=== PATIENT | male | born 1995 | race Two or more races ===

== ENCOUNTER 2017-04-10 17:43 | Emergency (ER) | payer BC, OTHER ==
[~2017-04-10] VITALS: Ht 185.4 cm; Wt 99.8 kg
[2017-04-10] MEDS ORDERED: AZIT500T4 PO (18:07)
--- NOTE | 2017-04-10 18:31 | NUR ---
Pt c/o flu like s/s, dizziness, DAILEY, dry cough, body aches, and fever (101-103) for over 1 week. Pt states he was put on "Z-pack" 4 days ago but is getting worse. Pt denies n/v, CP, SOB, no other complaints, minor distress noted.
[2017-04-10] MEDS ORDERED: ACETAMINOPHEN ES 500 MG TABLET PO ONE (18:45)
[2017-04-10] MEDS ORDERED: HYDROCODONE/APAP 5-325MG TABLET PO ONE (18:45)
[2017-04-10 19:03] LABS: BASOPHILS % (AUTO) 0.3 % (0.0-2.0); EOSINOPHILS % (AUTO) 0.2 % (0.0-7.0); HEMATOCRIT 47.3 % (40-50); HEMOGLOBIN 15.6 G/DL (14.0-18.0); LYMPHOCYTES # (AUTO) 2.2 K/UL (0.8-4.8); MEAN CORPUSCULAR HEMOGLOBIN 27.6 UUG (27.0-31.0); MEAN CORPUSCULAR HGB CONC 33 g/dL (32.0-37.0); MEAN CORPUSCULAR VOLUME 83.8 FL (82.0-92.0); MONOCYTES # (AUTO) 0.5 K/UL (0.1-1.30); MONOCYTES % (AUTO) 6.8 % (0.0-11.0); NEUTROPHILS # (AUTO) 5.4 K/UL (1.8-8.9); NEUTROPHILS % (AUTO) 65.7 % (38.5-71.5); PLATELET COUNT (AUTO) 204 K/UL (150-450); RED BLOOD CELL COUNT(AUTO) 5.65 MIL/UL (4.7-6.1); WHITE BLOOD COUNT (AUTO) 8.1 K/UL (4.0-11.2)
[2017-04-10] MEDS ORDERED: HYDROCODONE/APAP 5-325MG TABLET ONE (19:07)
[2017-04-10] MEDS ORDERED: ACETAMINOPHEN ES 500 MG TABLET ONE (19:07)
[2017-04-10 19:14] LABS: CREATININE 1.1 mg/dL (0.6-1.3); POTASSIUM 3.9 mmol/L (3.5-5.1)
[2017-04-10 19:19] LABS: BILIRUBIN,TOTAL 0.9 mg/dL (0.2-1.0); TOTAL PROTEIN, SERUM 8.4 g/dL (6.4-8.2)
[2017-04-10 19:29] LABS: *MONOTEST NEGATIVE (NEGATIVE)
--- NOTE | 2017-04-10 20:54 | NUR ---
Patient discharged to home in stable conditon. Written and verbal after care instructions given. Patient verbalizes understanding of instructions.
== END 2017-04-10 20:55 | disposition home or self-care (01) ==
LOC: ER 17:43
DX: J02.8 Acute pharyngitis due to other specified organisms (principal); G89.4 Chronic pain syndrome; M54.5 Low back pain; I10 Essential (primary) hypertension
CPT/HCPCS: 36415; 70360; 71010; 85025; 86308; 86403; 87070; A4663

== ENCOUNTER 2018-01-21 15:30 | Emergency (ER) | payer BC ==
[~2018-01-21] VITALS: Ht 188 cm; Wt 104.3 kg
[~2018-01-21 15:30] MED LIST: AZIT500T4 PO
[2018-01-21] MEDS ORDERED: LOSA25TA13 PO (16:04)
[2018-01-21] MEDS ORDERED: HYDROMORPHONE 1 MG/1 ML DISP.SYRIN IV ONE (17:00)
[2018-01-21] MEDS ORDERED: ONDANSETRON 4 MG/2 ML VIAL IV ONE (17:00)
[2018-01-21] MEDS ORDERED: HYDROCODONE/APAP 10-325 MG TABLET PO ONE (17:00)
[2018-01-21 17:03] LABS: BASOPHILS % (AUTO) 0.2 % (0.0-2.0); EOSINOPHILS % (AUTO) 0.1 % (0.0-7.0); HEMATOCRIT 47.9 % (36.7-47.1); HEMOGLOBIN 16.5 g/dL (12.5-16.3); LYMPHOCYTES # (AUTO) 1.4 K/uL (20.0-40.0); LYMPHOCYTES % (AUTO) 15.8 % (20.5-51.5); MEAN CORPUSCULAR HEMOGLOBIN 28.8 uug (23.8-33.4); MEAN CORPUSCULAR HGB CONC 35 g/dL (32.5-36.3); MEAN CORPUSCULAR VOLUME 83.5 fL (73.0-96.2); MONOCYTES # (AUTO) 0.4 K/uL (2.0-10.0); MONOCYTES % (AUTO) 4.4 % (0.0-11.0); NEUTROPHILS # (AUTO) 7.1 K/uL (1.8-8.9); NEUTROPHILS % (AUTO) 79.5 % (38.5-71.5); PLATELET COUNT (AUTO) 234 K/uL (152-348); RED BLOOD CELL COUNT(AUTO) 5.74 MIL/uL (4.06-5.63)
[2018-01-21] MEDS ORDERED: HYDROCODONE/APAP 10-325 MG TABLET ONE (17:04)
[2018-01-21 17:10] LABS: CREATININE 1.2 mg/dL (0.6-1.3); POTASSIUM 3.9 mmol/L (3.5-5.1)
[2018-01-21 17:16] LABS: BILIRUBIN,DIRECT 0.1 mg/dL (0.0-0.2); BILIRUBIN,TOTAL 0.6 mg/dL (0.2-1.0); TOTAL PROTEIN, SERUM 8.7 g/dL (6.4-8.2)
--- NOTE | 2018-01-21 17:34 | NUR ---
TEXTED DR. ROMERO FOR MRI APPROVAL.
--- NOTE | 2018-01-21 17:59 | NUR ---
Call received from [facility], who states MRI procedure was approved and requests transportation to be arranged. ERMD notified, MRI questionnare completed.
--- NOTE | 2018-01-21 18:05 | NUR ---
Call placed to [facility] for transportation to [facility] for MRI scan, ETA 2030 for pickup and round-trip. ERMD notified.
--- NOTE | 2018-01-21 18:17 | NUR ---
Patient states he does not wish to proceed with MRI, LAURA notified, transportation and [facility] informed of cancelled procedure/transportation.
--- NOTE | 2018-01-21 18:41 | NUR ---
Patient discharged to home in stable conditon. Written and verbal after care instructions given. Patient verbalizes understanding of instructions. Will wait for his ride in ER lobby.. Patient not in any distress.
[2018-01-21 18:44] VITALS: BP 125/71
== END 2018-01-21 18:46 | disposition home or self-care (01) ==
LOC: ER 15:32
DX: M54.5 Low back pain (principal); M54.17 Radiculopathy, lumbosacral region; I10 Essential (primary) hypertension; N52.9 Male erectile dysfunction, unspecified
CPT/HCPCS: 36415; 70030-TC; 85025; 85730; A4663